=== PATIENT | female | born 1970 ===

== ENCOUNTER 2019-12-01 12:30 | Day surgery (SDC) | payer OTHER | END 2019-12-01 17:30 | disposition home or self-care (01) | LOC: AMB-ENDOS 12:30 → ADM 14:15 → AMB-ENDOS 17:30 | DX: K63.5 Polyp of colon (principal) ==

== ENCOUNTER → 2021-08-01 | Day surgery (SDC) | payer OTHER | END | disposition home or self-care (01) | LOC: ADM 07-28 12:30 → AMB-ENDOS 10:40 | PROVIDERS: ATTEND Surgery | DX: D12.4 Benign neoplasm of descending colon (principal); Z20.822 Contact with and (suspected) exposure to COVID-19 ==